=== PATIENT | female | born 1955 | race Caucasian/White ===

== ENCOUNTER 2016-08-07 04:35 | Emergency (ER) | payer OTHER ==
[~2016-08-07 04:35] MED LIST: ACETAMINOPHEN; ADVAIR 100-501 EAC1 INH; ADVAIR HFA 115-12 GM INH; ADVAIR INH; ALBUTEROL MININEB NEB; ALBUTEROL17 GM INH; ALDACTONE PO; ALPRAZOLAM PO; ALPRAZOLAM1 MG PO; AMBIEN PO; ARIXTRA7.5 MG/0.6 SQ; ARIXTRA7.5 MG/0.6 SUBQ; ATROVENT HFA12.9 G1 INH; ATROVENT IN; ATROVENT30 ML; BACTRIM DS TABL1 TA1; BENADRYL12.5 MG PO; BUMEX PO; CARVEDILOL6.25 MG PO; CEVIMELINE HCL30 MG PO; CHANTIX; COMPAZINE10 M1 PO; EC-NAPROSYN500 MG PO; EPI-PEN; ERYTHROMYCIN O3.5 G1 OD; EVISTA60 M1 PO; EVOXAC30 MG PO; FLUOCINOLONE AC15 G1; GABAPENTIN600 MG PO; HAIR, SKIN & N1 EAC1 PO; HYDROCODONE; HYDROCODONE-APA1 T57; IBUPROFEN PO; KCL PO; LEXAPRO PO; LORTAB 7.5-5001 TAB PO; LOVENOX SUBQ; MEDROL DOSEPAK4 MG PO; MEDROL4 MG/DOSE- PO; MICRO-K PO; NAPROXEN PO; NEURONTIN PO; NEXIUM PO; OXYCODON HCL-1 UDTA1 PO; OXYCODON HCL-AP1 TA1 PO; OXYCONTIN20 MG PO; OXYGEN; PANTOPRAZOLE SO40 MG PO; PERCOCET 10/3251 TAB PO; PHENERGAN PO; PHENERGAN25 M1 PO; PHENERGAN25 MG PO; PLAQUENIL200 MG PO; POTASSIUM CHLO10 ME1 PO; PREDNISONE; PROAIR HFA8.5 GM IH; PROTONIX PO; PROVENTIL INH0.5 ML HHN; QUALAQUIN324 MG PO; QUINAM PO; REGLAN PO; SERTRALINE HCL100 MG PO; TIZANIDINE HCL4 M1 PO; TRAMADOL HCL200 M1 PO; TRAMADOL HCL50 M1 PO; ULTRAM PO; XANAX1 MG PO; ZANAFLEX PO; ZITHROMAX PO; ZOLOFT PO
== END 2016-08-07 06:29 | disposition home or self-care (01) ==
LOC: SED 04:35
DX: G89.29 Other chronic pain (principal); M54.2 Cervicalgia; J44.9 Chronic obstructive pulmonary disease, unspecified; M32.9 Systemic lupus erythematosus, unspecified; F17.200 Nicotine dependence, unspecified, uncomplicated; Z91.030 Bee allergy status; Z88.5 Allergy status to narcotic agent; Z79.899 Other long term (current) drug therapy
CPT/HCPCS: 96374; 96375; 99284; J1170; J1642; J3360